=== PATIENT | female | born 1935 | race Caucasian/White ===

== ENCOUNTER → 2022-03-01 13:09 | Outpatient (REF) | payer MEDICARE, SELFPAY ==
--- NOTE | 2022-03-01 13:13 | HM_ITS ---
* Total monitoring time 1 day. * Underlying rhythm is sinus. Average ventricular rate 69/Min. Range 62 to 82/Min. * Very rare PACs. One PVC. * No significant pauses or AV blocks. * No patient marker. No relevant symptoms in diary. MTDD
== END ==
LOC: HO.CARD 13:09
PROVIDERS: Visit Provider Psychiatry & Neurology Neurology
DX: R55 Syncope and collapse (principal)
CPT/HCPCS: 93225

== ENCOUNTER 2022-09-16 01:52 | Emergency (ER) | payer MEDICARE, SELFPAY ==
--- NOTE | ~2022-09-16 | CT_ITS ---
EXAMINATION: CT CERVICAL SPINE WITHOUT CONTRAST CLINICAL INFORMATION: Trauma. Pain. COMPARISON: None available. TECHNIQUE: Contiguous axial noncontrast CT scan images of the cervical spine obtained. Sagittal and coronal reformatted images also obtained. This CT examination was performed using dose optimization techniques as appropriate, variously including the following: *Automated exposure control *Adjustment of mA and/or kV according to patient size (this includes techniques or standardized protocols for targeted exams where dose is matched to indication/reason for exam; i.e. extremities or head) *Use of iterative reconstruction technique DLP: 517.27 mGy-cm FINDINGS: There is straightening of the expected cervical spine curvature. There is moderate C5-C6 and C6-C7 disc degenerative change with loss of disc space, endplate change and posterior osteophytes associated with diffuse facet osteoarthritic hypertrophic change with multilevel mild spinal canal and neuroforaminal narrowing. There is no fracture. The soft tissues are unremarkable. The upper lung almonte are clear. CT/CT cervical spine wo IV con IMPRESSION: Cervical disc degenerative change with straightening of the expected cervical spine curvature. No acute abnormality identified. Fleischner guidelines were followed.
--- NOTE | ~2022-09-16 | CT_ITS ---
EXAMINATION: CT HEAD WITHOUT CONTRAST CLINICAL INFORMATION: Fall. Head strike. COMPARISON: None available. TECHNIQUE: Contiguous axial imaging was performed from the skull base to vertex without intravenous administration of contrast. This CT examination was performed using dose optimization techniques as appropriate, variously including the following: *Automated exposure control *Adjustment of mA and/or kV according to patient size (this includes techniques or standardized protocols for targeted exams where dose is matched to indication/reason for exam; i.e. extremities or head) *Use of iterative reconstruction technique DLP: 562.65 mGy-cm FINDINGS: Mild cerebral volume loss with prominence of the lateral and the third ventricles. The cortical sulci are widened appropriately. The fourth ventricle and basal cisterns are normally outlined. There is no acute territorial defect, hemorrhage or midline shift. The extra-axial spaces are unremarkable. Calvarium: Intact. Maxillofacial sinuses and mastoids: Clear as visualized. CT/CT head/brain wo IV con IMPRESSION: No acute intracranial abnormality.
[2022-09-16 02:03] VITALS: BP 140/102; PULSE 68; O2SAT 97; BMI 32.0
[2022-09-16 02:04] VITALS: BP 119/42; PULSE 65; RESP 17; TEMP 36.7; O2SAT 96
[2022-09-16 03:48] VITALS: BP 117/45; PULSE 64; RESP 17; TEMP 36.8; O2SAT 96
--- NOTE | 2022-09-16 04:12 | ED.FALL ---
HPI - Fall General Chief Complaint: Fall Stated Complaint: Fall Time Seen by Provider: 09/16/22 03:54 Source: patient Mode of arrival: EMS Limitations: no limitations History of Present Illness HPI Narrative: Patient comes to the emergency room complaining of a laceration to the scalp. Patient fell backwards opening the Fridge. Patient states that she did not lose consciousness, not on blood thinners. Patient has no headache, no neck pain. Only localized pain at the laceration site. Patient denies any other injury. Related Data Allergies Allergy/AdvReac Type Severity Reaction Status Date / Time morphine [MORPHINE] Allergy Unknown DIZZY Unverified 10/23/19 18:17 SEASONAL ALLERGIES Allergy Unknown RUNNY Uncoded 10/23/19 18:17 NOSE, NASAL STUFFINESS Review of Systems Review of Systems: Constitutional : No Weight loss, No Fever, No Chills, No Night Sweats, No Fatigue, No Malaise ENT/Mouth : No Hearing loss, No Ear Pain, No Nasal Congestion, No Sinus Pain, No Hoarseness, No sore throat, No Rhinorrhea, No Swallowing Difficulty Eyes: No Eye Pain, No Swelling, No Redness, No Foreign Body, No Discharge, No Vision Changes Cardiovascular : No Chest Pain, No SOB, No Dyspnea on Exertion, No Orthopnea, No Edema, No Palpitations Respiratory : No Cough, No Sputum, No Wheezing, No Smoke Exposure, No Dyspnea Gastrointestinal : No Nausea, No Vomiting, No Diarrhea, No Constipation, No abdominal Pain, No Hematochezia, No Melena Genitourinary : no irregular bleeding, No Dysuria, No Urinary Frequency, No Hematuria, No Urinary Incontinence, No Urgency, No Flank Pain, No Urinary Flow Changes, No Hesitancy Musculoskeletal : No joint pain, No Myalgias, No Joint Swelling Skin : Laceration to scalp Neuro : No Weakness, No Numbness, No Paresthesias, No Loss of Consciousness, No Dizziness, No Headache Psych : No Anxiety/Panic, No Depression, No SI/HI/AH/VH, No Social Issues, Heme/Lymph: No Bruising, No Bleeding,No Lymphadenopathy Endocrine : No Polyuria, No Polydipsia, No Temperature Intolerance PMFSH Social History Social History Alcohol intake: current Alcohol intake frequency: a few times a week Smoked in Last 30 Days: No Use of substances other than those prescribed or required for medical reasons: No Advance Directives: No Advance Directives Information Provided: Yes Physical Exam Vital Signs: Vital Signs: Last Vital Signs Temp 98.1 F 09/16/22 05:37 Pulse 63 09/16/22 05:37 Resp 17 09/16/22 05:37 BP 122/55 L 09/16/22 05:37 Pulse Ox 99 09/16/22 05:37 O2 Del Method Room Air 09/16/22 05:37 BMI result Body Mass Index 32.0 Const: Other: Appearance: Alert. Oriented X3. No acute distress. Eyes: Pupils equal, round and reactive to light. ENT: Pharynx normal. Neck: Normal inspection. Neck supple. No lymph nodes noted. No crepitus CVS: Normal heart rate and rhythm. Pulses normal. Normal S1 and S2 Respiratory: No respiratory distress. Breath sounds normal. No Wheezing. No rales Abdomen: Soft and nontender. No rigidity. No distention. Skin: There is a U shaped laceration to the scalp, 1 in Extremities: No lower extremity edema. No Lacerations. No Rash Neuro: Oriented X 3. No motor deficit. No sensory deficit. Moving all extremities. No slurred speech. CN 2 through 12 grossly intact Psych: calm, cooperative, normal affect Procedures Laceration Laceration 1: Site: scalp Size (cm): 2 Description: linear Depth: simple, single layer Skin layer closed with: other (Debbi) Number of sutures: 2 Medical Decision Making Medical Decision Making [facility] Narrative: -I discussed with the patient that she will need debbi, this can be done with or without lidocaine, patient decided to go ahead and do it without lidocaine. -head CT and cervical spine CT negative -my interpretation of urine: Negative for UTI Differential Diagnosis Differential Diagnoses: The differential diagnosis associated with the presentation includes (Fall, laceration, abrasion, puncture wound) Lab Data [facility] Lab Attestation statement: I reviewed the patient's lab results. Labs: Lab Results 09/16/22 Range/Units 06:02 Urine Color Yellow Urine Appearance Clear Urine pH 5.5 (5.0-9.0) Ur Specific [place] 1.010 (1.005-1.025) Urine Protein Negative (Neg-Trace) mg/dL Urine Glucose (UA) Negative (Negative) mg/dL Urine Ketones Negative (Negative) mg/dL Urine Blood Small (1+) H (Negative) Urine Nitrite Negative (Negative) Ur Leukocyte Esterase Trace H (Negative) Urine RBC 6-10 H (0-2) /HPF Urine WBC 0-5 (0-5) /HPF Ur Squamous Epith Cells 3-5 (0-2) /HPF Urine Bacteria None Seen (None Seen) Hyaline Casts 0-2 (0-2) /LPF Radiology Impression Discussion of test interpretation with radiology: I have reviewed the radiologist's reading. Radiologist Impression: There is straightening of the expected cervical spine curvature. There is moderate C5-C6 and C6-C7 disc degenerative change with loss of disc space, endplate change and posterior osteophytes associated with diffuse facet osteoarthritic hypertrophic change with multilevel mild spinal canal and neuroforaminal narrowing. There is no fracture. The soft tissues are unremarkable. The upper lung almonte are clear. CT/CT cervical spine wo IV con IMPRESSION: Cervical disc degenerative change with straightening of the expected cervical spine curvature. ? No acute abnormality identified. ? Fleischner guidelines were followed. Mild cerebral volume loss with prominence of the lateral and the third ventricles. The cortical sulci are widened appropriately. The fourth ventricle and basal cisterns are normally outlined. There is no acute territorial defect, hemorrhage or midline shift. The extra-axial spaces are unremarkable. Calvarium: Intact. Maxillofacial sinuses and mastoids: Clear as visualized. ? CT/CT head/brain wo IV con IMPRESSION: ? No acute intracranial abnormality. Discharge Plan Discharge Clinical Impression: Fall, Laceration of scalp Patient Disposition: Home, Self-Care
[2022-09-16 05:37] VITALS: BP 122/55; PULSE 63; RESP 17; TEMP 36.7; O2SAT 99
[2022-09-16 06:12] LABS: Appearance Urine Clear; Color Urine Yellow; Glucose Urine UA Negative (Negative); Leukocyte Esterase Urine Trace (Negative); Nitrite Urine Negative (Negative); PH 5.5 (5.0-9.0); UMIC TRIGGER UACC YES; Urine Blood Small (1+) (Negative); Urine Ketones Negative (Negative); Urine Protein Negative (Neg-Trace)
[2022-09-16 06:16] LABS: Bacteria Urine None Seen (None Seen); Hyaline Casts Urine 0-2 /LPF (0-2); WBC Urine 0-5 /HPF (0-5)
--- NOTE | 2022-09-16 06:53 | PC.NURSE ---
Per Dr. Olivares no lab needed at this time.
--- NOTE | 2022-09-16 07:52 | PC.NURSE ---
Alert and oriented, denies pain or discomfort. Patient aware of CT results and discharge. Patient stating she has no way to get home, charge nurse aware.
--- NOTE | 2022-09-16 08:38 | PC.NURSE ---
With patients permission called son jerry to give update on condition and need for ride home. Jerry stating that either himself or patients niece will be in to pick patient up
--- NOTE | 2022-09-16 08:54 | PC.NURSE ---
Discharge plan reviewed with patient who verbalized understanding. Patient and aware that debbi need to be removed in 7-10 days
== END 2022-09-16 09:46 | disposition home or self-care (01) ==
PROVIDERS: Emergency Provider Emergency Medicine; PCP Family Medicine
DX: S01.01XA Laceration without foreign body of scalp, initial encounter (principal); W19.XXXA Unspecified fall, initial encounter; Y93.89 Activity, other specified; Y92.89 Other specified places as the place of occurrence of the external cause; Z11.9 Encounter for screening for infectious and parasitic diseases, unspecified
CPT/HCPCS: 12001; 70450; 72125; 81001; 99284